=== PATIENT | female | born 1985 | race Caucasian/White ===

== ENCOUNTER 2020-05-01 13:22 | Emergency (ER) | payer OTHER ==
[~2020-05-01 13:22] MED LIST: MACRODANTIN100 MG PO; NAPROSYN EC 37375 MG PO; ZOFRAN ODT 4 MG4 MG PO
[2020-05-01 15:05] LABS: HEMOGLOBIN 12.5 gm/dl (12.3-15.3); RED BLOOD COUNT 4.58 M/UL (4.00-5.10); WHITE BLOOD COUNT 10.4 K/UL (4.5-11.0)
[2020-05-01 15:22] LABS: BUN/CREATININE RATIO 26 (0-10)
[2020-05-01] MEDS ORDERED: ATIVAN1 MG PO (17:30)
[2020-05-01] MEDS ORDERED: ZOFRAN ODT 4 MG4 MG PO (17:30)
== END 2020-05-01 19:43 | disposition home or self-care (01) ==
LOC: ER1 13:22
PROVIDERS: Family Medicine
DX: F10.139 Alcohol abuse with withdrawal, unspecified (principal); F17.200 Nicotine dependence, unspecified, uncomplicated; Y90.0 Blood alcohol level of less than 20 mg/100 ml
CPT/HCPCS: 80053; 81001; 83735; 85025; 93005; 96365; 96366; 96375; 99284; G0480; J2405; J3411; J3475; J7030

== ENCOUNTER 2020-08-01 13:12 | Emergency (ER) | payer OTHER ==
[~2020-08-01 13:12] MED LIST changes: +ATIVAN1 MG PO
[2020-08-01 14:32] LABS: RED BLOOD COUNT 5.02 M/UL (4.00-5.10); WHITE BLOOD COUNT 6.9 K/UL (4.5-11.0)
[2020-08-01 14:53] LABS: BUN/CREATININE RATIO 9 (0-10)
== END 2020-08-01 19:00 | disposition home or self-care (01) ==
LOC: ER1 13:12
PROVIDERS: Physician Assistant
DX: F10.10 Alcohol abuse, uncomplicated (principal); Z90.49 Acquired absence of other specified parts of digestive tract; Z90.710 Acquired absence of both cervix and uterus; F17.210 Nicotine dependence, cigarettes, uncomplicated; Z20.822 Contact with and (suspected) exposure to COVID-19
CPT/HCPCS: 71045; 80053; 80307; 81001; 83735; 84702; 85025; 93005; 99284; G0480; J7030; U0002

== ENCOUNTER 2020-10-18 17:15 | Emergency (ER) | payer OTHER ==
[2020-10-18 18:35] LABS: HEMOGLOBIN 14.7 gm/dl (12.3-15.3); RED BLOOD COUNT 4.47 M/UL (4.00-5.10); WHITE BLOOD COUNT 11.9 K/UL (4.5-11.0)
[2020-10-18 18:53] LABS: BUN/CREATININE RATIO 18 (0-10)
[2020-10-18] MEDS ORDERED: ZOFRAN 4 MG TAB4 MG PO (21:11)
== END 2020-10-18 21:30 | disposition home or self-care (01) ==
LOC: ER1 17:15
PROVIDERS: Physician Assistant
DX: R11.2 Nausea with vomiting, unspecified (principal); Z90.710 Acquired absence of both cervix and uterus; Z90.49 Acquired absence of other specified parts of digestive tract; Z87.442 Personal history of urinary calculi
CPT/HCPCS: 80053; 81001; 85025; 87086; 96374; 99284; J2405

== ENCOUNTER 2020-11-22 09:41 | Emergency (ER) | payer OTHER ==
[~2020-11-22 09:41] MED LIST changes: +ZOFRAN 4 MG TAB4 MG PO
== END 2020-11-22 11:32 | disposition left against medical advice (07) ==
LOC: ER1 09:41
DX: Z53.21 Procedure and treatment not carried out due to patient leaving prior to being seen by health care provider (principal)

== ENCOUNTER 2021-05-29 11:43 | Emergency (ER) | payer OTHER ==
[2021-05-29 12:53] LABS: HEMOGLOBIN 14.7 gm/dl (12.3-15.3); RED BLOOD COUNT 4.42 M/UL (4.00-5.10); WHITE BLOOD COUNT 5.5 K/UL (4.5-11.0)
[2021-05-29 13:42] LABS: BUN/CREATININE RATIO 27 (0-10)
[2021-05-29] MEDS ORDERED: ASPIRIN CHEWABL81 MG PO (14:11)
== END 2021-05-29 15:35 | disposition home or self-care (01) ==
LOC: ER1 11:43
PROVIDERS: Emergency Medicine
DX: R07.89 Other chest pain (principal); R00.2 Palpitations; Z20.822 Contact with and (suspected) exposure to COVID-19; F17.200 Nicotine dependence, unspecified, uncomplicated
CPT/HCPCS: 0240U; 71045; 80053; 80307; 81001; 82550; 82553; 84439; 84443; 84484; 85025; 85379; 93005; 99285

== ENCOUNTER 2021-10-09 17:13 | Emergency (ER) | payer OTHER ==
[~2021-10-09 17:13] MED LIST changes: +ASPIRIN CHEWABL81 MG PO
[2021-10-09] MEDS ORDERED: PERCOCET 5/325 T1 EA PO ×2 (18:22→19:16)
[2021-10-09] MEDS ORDERED: PHENERGAN 25 MG25 M1 PO (18:22)
== END 2021-10-09 18:40 | disposition home or self-care (01) ==
LOC: ER1 17:13
DX: S52.502A Unspecified fracture of the lower end of left radius, initial encounter for closed fracture (principal); S52.612A Displaced fracture of left ulna styloid process, initial encounter for closed fracture; V89.2XXA Person injured in unspecified motor-vehicle accident, traffic, initial encounter
CPT/HCPCS: 29125; 73060; 73090; 73130; 96372; 99283; J2270; J2550

== ENCOUNTER → 2021-10-11 | Outpatient (CLI) | payer OTHER ==
[~2021-10-11] MED LIST changes: +PERCOCET 5/325 T1 EA PO; +PHENERGAN 25 MG25 M1 PO
== END ==
LOC: KOH-I 15:00
DX: S52.572A Other intraarticular fracture of lower end of left radius, initial encounter for closed fracture (principal); S52.612A Displaced fracture of left ulna styloid process, initial encounter for closed fracture
CPT/HCPCS: 73200

== ENCOUNTER 2021-10-17 14:54 | Emergency (ER) | payer OTHER ==
[2021-10-18] MEDS ORDERED: NEURONTIN800 MG PO (12:46)
[2021-10-18] MEDS ORDERED: PHENERGAN 25 MG25 M1 PO (12:47)
[2021-10-18] MEDS ORDERED: IBU800 MG PO (12:47)
[2021-10-19] MEDS ORDERED: HYDROCODON-ACE1 EAC6 PO (07:20)
[2021-10-19] MEDS ORDERED: PERCOCET 7.5-31 EACH PO (09:49)
== END 2021-10-17 16:32 | disposition left against medical advice (07) ==
LOC: ER1 14:54
DX: Z53.21 Procedure and treatment not carried out due to patient leaving prior to being seen by health care provider (principal)

== ENCOUNTER → 2021-10-18 | Outpatient (CLI) | payer OTHER ==
[~2021-10-18] MED LIST changes: +HYDROCODON-ACE1 EAC6 PO; +IBU800 MG PO; +NEURONTIN800 MG PO; +PERCOCET 7.5-31 EACH PO
[2021-10-18 12:46] LABS: HEMOGLOBIN 14.7 gm/dl (12.3-15.3); RED BLOOD COUNT 4.29 M/UL (4.00-5.10); WHITE BLOOD COUNT 9.7 K/UL (4.5-11.0)
[2021-10-18 13:10] LABS: BUN/CREATININE RATIO 26 (0-10)
== END ==
LOC: OPSV2 10:00
PROVIDERS: Orthopaedic Surgery
DX: Z01.812 Encounter for preprocedural laboratory examination (principal); S52.512A Displaced fracture of left radial styloid process, initial encounter for closed fracture; S52.612A Displaced fracture of left ulna styloid process, initial encounter for closed fracture
CPT/HCPCS: 36415; 80048; 85027

== ENCOUNTER → 2021-10-19 | Day surgery (SDC) | payer OTHER | END | disposition home or self-care (01) | LOC: OR 05:07 | DX: S52.572A Other intraarticular fracture of lower end of left radius, initial encounter for closed fracture (principal); S52.612A Displaced fracture of left ulna styloid process, initial encounter for closed fracture; V89.2XXA Person injured in unspecified motor-vehicle accident, traffic, initial encounter; G89.18 Other acute postprocedural pain; F17.210 Nicotine dependence, cigarettes, uncomplicated | CPT/HCPCS: 73110; 76000; C1713; J0171; J0690; J1100; J1885; J2001; J2250; J2405; J2704; J2795; J3010 ==